=== PATIENT | male | born 1945 | race Caucasian/White ===

== ENCOUNTER 2019-06-18 09:06 | Inpatient (IN) ==
--- NOTE | 2019-06-18 10:02 | Diag Imaging Result Doc PS360 ---
EXAM: KUB ABDOMEN HISTORY: AMS TECHNIQUE: Single view COMPARISON: None. FINDINGS: No bowel obstruction. No organomegaly. Prominent atherosclerosis. Mild degenerative spine changes. IMPRESSION: No acute abnormality Electronically signed by Waylon Vaughan 06/18/2019 10:00 AM
--- NOTE | 2019-06-18 10:02 | Diag Imaging Result Doc PS360 ---
EXAM: CHEST-PORTABLE HISTORY: AMS TECHNIQUE: Single view COMPARISON: 01/08/2017 FINDINGS: The lungs are well expanded. The heart is not enlarged. There are sternal wires. The vessels are not distended. Mild increased interstitial markings in both lungs. No effusion identified. Right-sided granuloma. IMPRESSION: Small infiltrates Electronically signed by Waylon Vaughan 06/18/2019 9:59 AM
--- NOTE | 2019-06-18 10:20 | EKG Report ---
Test Performed on : 06/18/2019 10:19:27 AM Test Reason : AMS Blood Pressure : / mmHG Vent. Rate : 087 BPM Atrial Rate : 087 BPM P-R Int : 148 ms QRS Dur : 088 ms QT Int : 344 ms P-R-T Axes : 069 053 077 degrees QTc Int : 413 ms Sinus rhythm. with frequent premature ventricular complexes. Nonspecific T wave abnormality Abnormal ECG When compared with ECG of 08-JAN-2017 10:08, premature ventricular complexes. are now present Borderline criteria for Inferior infarct are no longer present Unconfirmed Result
[2019-06-18 10:28] LABS: ALLEN TEST YES; BE -6.6 mmoll (-3.0-3.0); BLOOD TYPE ARTERIAL; HCO3-(ACT) 19.7 mmoll (20.0-26.0); METHB 1.3 % (0.0-1.5); O2(CT) 18.6 mL/dL (15.0-23.0); O2HB 95.3 % (95.0-99.0); PCO2(98.6) 29 mmHg (35-45); PO2(98.6) 86 mmHg (60-100); SAMPLE BLOOD; SAO2 98.8 % (95.0-100.0); THB 13.8 g/dL (11.5-17.4); pH(98.6) 7.38 (7.35-7.45)
--- NOTE | 2019-06-18 10:29 | Diag Imaging Result Doc PS360 ---
CT HEAD W/O CONTRAST - 06/18/2019 INDICATION: AMS COMPARISON: 01/08/2017 FINDINGS: There has been some increase in the ventricular sizes diffusely. There is also increase in the periventricular white matter edema or gliosis. There is probably a stable small old stroke in the left cerebellar hemisphere. No intracranial mass or hemorrhage. The skull is intact. The sinuses are grossly clear. IMPRESSION: Worsening ventricular dilation with periventricular white matter edema or gliosis. Highly suggestive of normal pressure hydrocephalus. This exam was performed using automated exposure control, adjustment of mA or kV according to patient size, and/or use of iterative reconstruction technique Electronically signed by Ramo Isaac 06/18/2019 10:27 AM
[2019-06-18 10:30] LABS: MODALITY ROOM AIR
[2019-06-18 11:08] LABS: BASO# 0.01 X1000 (0.0-0.2); BASO% 0.1 % (0.0-0.8); HEMATOCRIT 40.5 % (42.0-52.0); LYMPH# 1.15 X1000 (1.2-3.4); LYMPH% 8.8 % (20.5-51.1); MCH 30.1 PG (27-31); MCHC 34.6 g/dL (33-37); MCV 87.1 FL (81-99); MONO# 0.77 X1000 (0.11-0.59); MONO% 5.9 % (1.7-9.3); MPV 12.7 FL (7.4-10.4); NEUT% 85.2 % (42.2-75.2); PLT 193 X1000 (130-400); RBC 4.65 XMIL (4.7-6.1); RDW 14.8 % (11.5-14.5); WBC 13.13 X1000 (4.8-10.8)
[2019-06-18 11:10] LABS: INR 1.03; PROTIME 13.7 Seconds (11.0-16.0)
[2019-06-18 11:23] LABS: BILIRUBIN URINE NEGATIVE (NEGATIVE); BLOOD URINE SMALL (NEGATIVE); COLOR YELLOW; GLUCOSE URINE >1000 mg/dL (NEGATIVE); KETONE URINE 10 mg/dL (NEGATIVE); LEUKOCYTES URINE LARGE (NEGATIVE); NITRITE URINE NEGATIVE (NEGATIVE); PROTEIN URINE TRACE mg/dL (NEGATIVE); SP GRAVITY URINE 1.021; TURBIDITY URINE HAZY (CLEAR); URINE SOURCE CATH; UROBILINOGEN URINE NORMAL (NORMAL)
[2019-06-18 11:26] LABS: ALB/GLOB RATIO 1.1; ALBUMIN 3.6 g/dL (3.5-5.0); CALCIUM 9.1 mg/dL (8.8-10.2); CREATININE 1.8 mg/dL (0.7-1.2); POTASSIUM 4.6 mmol/L (3.5-5.1); TOTAL BILIRUBIN 0.41 mg/dL (0.20-1.00); TOTAL PROTEIN 6.8 g/dL (6.3-8.3)
[2019-06-18] MEDS ORDERED: HUMULIN R IV ONE (11:31)
[2019-06-18 11:32] LABS: UR EPITHELIAL CELLS <10 /HPF (<10); URINE BACTERIA 1+ /HPF; URINE RBC <10 /HPF (<10); URINE WBC TNTC /HPF (<10)
[2019-06-18 11:43] LABS: URINE CASTS NONE SEEN; URINE CRYSTALS NONE SEEN; URINE SMALL ROUND CELLS NONE SEEN; URINE YEAST NONE SEEN
[2019-06-18 12:03] LABS: UR AMPHETAMINES QUAL NONE DETECTED (NONE DETECT); UR BARBITUATES QUAL NONE DETECTED (NONE DETECT); UR BENZODIAZEPIN QUAL NONE DETECTED (NONE DETECT); UR CANNABINOIDS QUAL NONE DETECTED (NONE DETECT); UR COCAINE QUAL NONE DETECTED (NONE DETECT); UR METHADONE QUAL NONE DETECTED (NONE DETECT); UR OPIATES QUAL NONE DETECTED (NONE DETECT); UR OXYCODONE QUAL NONE DETECTED (NONE DETECT); UR PCP QUAL NONE DETECTED (NONE DETECT)
[2019-06-18] MEDS ORDERED: ZOSYN 3.375 GM in NS 50 ML IV ONE (12:10)
[2019-06-18] MEDS ORDERED: LOVENOX 1 MG/KG SUBQ ONE (12:11)
[2019-06-18] MEDS ORDERED: NS 1,000 ML IV ONE (12:13)
[2019-06-18] MEDS ORDERED: LOVENOX SUBQ ONE (12:15)
--- NOTE | 2019-06-18 12:24 | PROVIDER DOCUMENTATION ---
This chart was entered by Rosalba Cano Scribe, acting as scribe for Dawit Orozco DO. HPI-Fever - General Chief Complaint: Altered Mental Status Stated Complaint: ams Time Seen by Provider: 06/18/19 09:49 Source: family (), other (Hospice nurse) Allergies/Adverse Reactions: Patient Allergies Allergy/AdvReac Type Severity Reaction Status Date / Time No Known Allergies Allergy Verified 01/08/17 10:53 Home Medications: Home Medication List Medication Instructions Recorded Confirmed Last Taken Type Aspirin/Dipyridamole [Aggrenox 25 1 each PO DAILY 10/26/13 01/08/17 10/25/13 History mg-200 mg Capsule] Fenofibrate 160 mg PO DAILY 10/26/13 01/08/17 10/25/13 History Insulin Detemir [Levemir] 70 unit SUBQ QPM 10/26/13 01/08/17 01/07/17 History LISINOpril [Prinivil] 20 mg PO DAILY 10/26/13 01/08/17 10/25/13 History Levothyroxine [Synthroid] 0.05 mg PO DAILY 10/26/13 01/08/17 10/25/13 History Metformin E.r. [Glucophage Xr] 1,000 mg PO BID CC 10/26/13 01/08/17 01/07/17 History Oxybutynin E.r. [Ditropan Xl] 10 mg PO DAILY 10/26/13 01/08/17 10/25/13 History PRAVAstatin [Pravachol] 40 mg PO DAILY 10/26/13 01/08/17 10/25/13 History Pioglitazone [Actos] 30 mg PO DAILY 10/26/13 01/08/17 10/25/13 History Aspirin [Aspir-Low] 81 mg PO DAILY 01/08/17 01/08/17 Unknown History Mirabegron [Myrbetriq] 50 mg PO DAILY 01/08/17 01/08/17 Unknown History Nitrofurantoin Monohyd/M-Cryst 100 mg PO BID #20 capsule 01/08/17 Unknown Rx [Macrobid 100 mg Capsule] Polyethylene Glycol 3350 [Miralax] 17 gm PO DAILY 01/08/17 01/08/17 Unknown History - History of Present Illness-Fever Nature of Presenting Problem: 73yom presents to ED by EMS cc fever of 101.4, weakness, vomiting and diarrhea with blood. 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 also reports pt was around great grandson on Saturday and child was diagnosed with flu on Saturday. also reports has had a fall in last week but denies pt hitting head or LOC. Hospice nurse is at bedside and reports pt was prescribed Seroquel 25mg qhs, 2 night ago, but pharmacist filled Zoloft instead and pt had 2 doses before it was realized to be wrong medicine. Pt has moderate dementia. Fever Severity/Quality: reports: greater than 100.5 F Onset/Duration: reports: this morning Timing: reports: still present Severity: reports: moderate, severe Context: reports: decreased mental status Recent Illness?: reports: none Cognitive Baseline: other (moderate dementia) Modifying Factors: improves with: nothing Associated Symptoms: reports: diarrhea, fever/chills, vomiting, weakness Similar Symptoms Previously?: No Recently seen or treated by another doctor?: No - Glascow Coma Score Best Eye Response ([place]acie): (4) open spontaneously Best Verbal Response ([place]acie): (1) no verbal response Best Motor Response ([place]): (4) withdraws to pain [place] Total: 9 Review of Systems - Adult - REVIEW OF SYSTEMS - ADULT Constitutional: reports: see HPI, chills, fever, fatique. denies: weight gain Eyes: reports: no symptoms reported Ears, Nose, Mouth & Throat: reports: no symptoms reported Cardiovascular: reports: no symptoms reported Respiratory: reports: see HPI. denies: cough, shortness of breath, wheezing Gastrointestinal: reports: see HPI, diarrhea, rectal bleeding, vomiting Genitourinary: reports: no symptoms reported Musculoskeletal: reports: no symptoms reported Integumentary: reports: no symptoms reported Neurological: reports: no symptoms reported Psychiatric: reports: no symptoms reported Endocrine: reports: no symptoms reported Hematologic/Lymphatic: reports: no symptoms reported Allergic/Immunologic: reports: no symptoms reported All Other Systems: Reviewed and Negative Past History - Adult - PAST MEDICAL HISTORY-ADULT Review of Records: reports: Nursing Assessment Review, Medications Reviewed, Social history reviewed & non-contributory. Major Childhood Illnesses: reports: denies history Cardiovascular: reports: HTN, OR Respiratory: reports: denies history Gastrointestinal: reports: denies history Obstetrical/Gynecological: reports: denies history Genitourinary: reports: denies history Musculoskeletal: reports: denies history Neurological: reports: CVA Endocrine/Immune: reports: Diabetes Other Conditions: reports: denies history - IMMUNIZATION STATUS Childhood Immunizations: See Nurse Assessment Flu Vaccine: See Nurse Assessment - FAMILY HISTORY Family History: reviewed, not pertinent - SOCIAL HISTORY Smoking: denies Physical Exam-General - PHYSICAL EXAM-ADULT Initial Vital Signs Reviewed: Yes - CONSTITUTIONAL General Appearance: no apparent distress, lethargic, slow to respond. negative: anxious, combative - EYES Eyes: PERRL/EOMI, pink conjunctivae. negative: photophobia - HEAD, EARS, NOSE, MOUTH & THROAT HENMT: normocephalic/atraumatic, moist mucous membranes, normal ENT inspection. negative: angioedema - RESPIRATORY Respiratory: chest non-tender, normal breath sounds, no pleuratic chest pain, no respiratory distress, no accessory muscle use, crackles (at bases bilateral). negative: lungs clear, rales, rhonchi, stridor, wheezing - CARDIOVASCULAR Cardiovascular: normal peripheral pulses, regular rate, rhythm, no edema, no gallop, no JVD, no murmur. negative: bradycardia, tachycardia - GASTROINTESTINAL (ABDOMEN) Abdominal Exam: normal bowel sounds, non tender, soft, no organomegaly, no pulsatile mass. negative: distended, guarding, rigid, rebound - LYMPHATIC Lymphatic: no adenopathy. negative: enlargement, striations - MUSCULOSKELETAL Extremity: non-tender, no pedal edema, no calf tenderness, normal capillary refill, other (moves extremities slowly). negative: deformity, swelling, tenderness - SKIN Integumentary: normal color, normal turgor, warm/dry. negative: diaphoresis, erythema, jaundice, rash, swelling, tenderness - NEUROLOGIC Neurologic: motor weakness (left arm, doesn't actively move it), sensory deficit (left arm), other (pt has strong right e m assembler but loose left). negative: facial droop - PSYCHIATRIC Psych/Mental Status: negative: anxious, disheveled Progress - PLAN OF CARE/RESULTS Progress/Plan/Lab Results: Vital Signs - 8 hr 06/18/19 09:13 06/18/19 09:17 06/18/19 09:18 Temperature 100.9 F H Pulse Rate 90 90 91 H Respiratory Rate 19 21 22 Blood Pressure 118/65 118/65 O2 Sat by Pulse Oximetry 97 97 97 06/18/19 09:30 06/18/19 09:33 06/18/19 09:45 Temperature Pulse Rate 89 91 H 89 Respiratory Rate 22 19 19 Blood Pressure 113/66 O2 Sat by Pulse Oximetry 95 98 95 06/18/19 10:09 06/18/19 10:15 06/18/19 10:45 Temperature Pulse Rate 88 89 85 Respiratory Rate 19 19 21 Blood Pressure 138/55 O2 Sat by Pulse Oximetry 96 96 96 06/18/19 10:48 06/18/19 11:00 06/18/19 11:03 Temperature Pulse Rate 85 94 H 85 Respiratory Rate 18 20 15 Blood Pressure 133/62 137/84 O2 Sat by Pulse Oximetry 99 98 97 06/18/19 10:35 Influenza Screen - Final Nasopharyngeal Laboratory Results - last 24 hr 06/18/19 06/18/19 06/18/19 10:11 10:20 10:30 WBC RBC Hgb Hct MCV MCH MCHC RDW Std Deviation Plt Count MPV Neut % (Auto) Lymph % (Auto) [place] % (Auto) Eos % (Auto) Baso % (Auto) Neut # (Auto) Lymph # (Auto) [place] # (Auto) Eos # (Auto) Baso # (Auto) PT INR PTT (Actin FS) Specimen Type ARTERIAL Sample Site R RADIAL pH 7.38 pCO2 29 L pO2 86 HCO3 19.7 L Base Excess -6.6 L Oxyhemoglobin 95.3 ABG O2 Sat (Calculated) 18.6 ABG O2 Saturation 98.8 ABG Carboxyhemoglobin 2.20 ABG Methemoglobin 1.3 Perry Test YES A-a O2 Difference 27.0 Total Hemoglobin 13.8 Lactate 1.20 Blood Gas Modality ROOM AIR FiO2 % 21.0 Sodium Potassium Chloride Carbon Dioxide Anion Gap BUN Creatinine Estimated GFR/1.73 m2 BUN/Creatinine Ratio Glucose POC Glucose 341 H Calculated Osmolality Calcium Total Bilirubin AST ALT Alkaline Phosphatase Creatine Kinase Troponin T High Sens Total Protein Albumin Globulin Albumin/Globulin Ratio Plasma Lactate 1.7 Urine Source Urine Color Urine Turbidity Urine pH Ur Specific [place] Urine Protein Ur Glucose (Stick) Ur Ketones (Stick) Urine Blood Urine Nitrite Urine Bilirubin Urobilinogen Dipstick Urine Leukocytes Urine WBC (Auto) Urine RBC (Auto) U Epithel Cells (Auto) Urine Bacteria (Auto) Urine Crystals Small Round Cells Urine Casts Urine Yeast-like Cells Urine Opiates Screen Ur Oxycodone Screen Ur Methadone, Qual Ur Barbiturates Screen Ur Phencyclidine Scrn Ur Amphetamines Screen U Benzodiazepines Scrn Urine Cocaine Screen U Cannabinoids Screen Plasma/Serum Ethyl Alc 06/18/19 06/18/19 06/18/19 10:30 10:30 10:30 WBC RBC Hgb Hct MCV MCH MCHC RDW Std Deviation Plt Count MPV Neut % (Auto) Lymph % (Auto) [place] % (Auto) Eos % (Auto) Baso % (Auto) Neut # (Auto) Lymph # (Auto) [place] # (Auto) Eos # (Auto) Baso # (Auto) PT 13.7 INR 1.03 PTT (Actin FS) 34.0 Specimen Type Sample Site pH pCO2 pO2 HCO3 Base Excess Oxyhemoglobin ABG O2 Sat (Calculated) ABG O2 Saturation ABG Carboxyhemoglobin ABG Methemoglobin Perry Test A-a O2 Difference Total Hemoglobin Lactate Blood Gas Modality FiO2 % Sodium Potassium Chloride Carbon Dioxide Anion Gap BUN Creatinine Estimated GFR/1.73 m2 BUN/Creatinine Ratio Glucose POC Glucose Calculated Osmolality Calcium Total Bilirubin AST ALT Alkaline Phosphatase Creatine Kinase Troponin T High Sens 174 H* Total Protein Albumin Globulin Albumin/Globulin Ratio Plasma Lactate Urine Source Urine Color Urine Turbidity Urine pH Ur Specific [place] Urine Protein Ur Glucose (Stick) Ur Ketones (Stick) Urine Blood Urine Nitrite Urine Bilirubin Urobilinogen Dipstick Urine Leukocytes Urine WBC (Auto) Urine RBC (Auto) U Epithel Cells (Auto) Urine Bacteria (Auto) Urine Crystals Small Round Cells Urine Casts Urine Yeast-like Cells Urine Opiates Screen Ur Oxycodone Screen Ur Methadone, Qual Ur Barbiturates Screen Ur Phencyclidine Scrn Ur Amphetamines Screen U Benzodiazepines Scrn Urine Cocaine Screen U Cannabinoids Screen Plasma/Serum Ethyl Alc 06/18/19 06/18/19 06/18/19 10:30 10:30 11:00 WBC 13.13 H RBC 4.65 L Hgb 14.0 Hct 40.5 L MCV 87.1 MCH 30.1 MCHC 34.6 RDW Std Deviation 14.8 H Plt Count 193 MPV 12.7 H Neut % (Auto) 85.2 H Lymph % (Auto) 8.8 L [place] % (Auto) 5.9 Eos % (Auto) 0.0 Baso % (Auto) 0.1 Neut # (Auto) 11.20 H Lymph # (Auto) 1.15 L [place] # (Auto) 0.77 H Eos # (Auto) 0.00 Baso # (Auto) 0.01 PT INR PTT (Actin FS) Specimen Type Sample Site pH pCO2 pO2 HCO3 Base Excess Oxyhemoglobin ABG O2 Sat (Calculated) ABG O2 Saturation ABG Carboxyhemoglobin ABG Methemoglobin [place] Test A-a O2 Difference Total Hemoglobin Lactate Blood Gas Modality FiO2 % Sodium 137 Potassium 4.6 Chloride 100 Carbon Dioxide 18 L Anion Gap 19 BUN 29 H Creatinine 1.8 H Estimated GFR/1.73 m2 37 BUN/Creatinine Ratio 16 Glucose 329 H POC Glucose Calculated Osmolality 292 Calcium 9.1 Total Bilirubin 0.41 AST 18 ALT 9 L Alkaline Phosphatase 50 Creatine Kinase 81 Troponin T High Sens Total Protein 6.8 Albumin 3.6 Globulin 3.2 Albumin/Globulin Ratio 1.1 Plasma Lactate Urine Source CATH Urine Color YELLOW Urine Turbidity HAZY Urine pH 5.0 Ur Specific [place] 1.021 Urine Protein TRACE A Ur Glucose (Stick) >1000 A Ur Ketones (Stick) 10 A Urine Blood SMALL A Urine Nitrite NEGATIVE Urine Bilirubin NEGATIVE Urobilinogen Dipstick NORMAL Urine Leukocytes LARGE A Urine WBC (Auto) TNTC A Urine RBC (Auto) <10 U Epithel Cells (Auto) <10 Urine Bacteria (Auto) 1+ Urine Crystals NONE SEEN Small Round Cells NONE SEEN Urine Casts NONE SEEN Urine Yeast-like Cells NONE SEEN Urine Opiates Screen Ur Oxycodone Screen Ur Methadone, Qual Ur Barbiturates Screen Ur Phencyclidine Scrn Ur Amphetamines Screen U Benzodiazepines Scrn Urine Cocaine Screen U Cannabinoids Screen Plasma/Serum Ethyl Alc 06/18/19 06/18/19 11:07 12:11 WBC RBC Hgb Hct MCV MCH MCHC RDW Std Deviation Plt Count MPV Neut % (Auto) Lymph % (Auto) [place] % (Auto) Eos % (Auto) Baso % (Auto) Neut # (Auto) Lymph # (Auto) [place] # (Auto) Eos # (Auto) Baso # (Auto) PT INR PTT (Actin FS) Specimen Type Sample Site pH pCO2 pO2 HCO3 Base Excess Oxyhemoglobin ABG O2 Sat (Calculated) ABG O2 Saturation ABG Carboxyhemoglobin ABG Methemoglobin [place] Test A-a O2 Difference Total Hemoglobin Lactate Blood Gas Modality FiO2 % Sodium Potassium Chloride Carbon Dioxide Anion Gap BUN Creatinine Estimated GFR/1.73 m2 BUN/Creatinine Ratio Glucose POC Glucose 322 H Calculated Osmolality Calcium Total Bilirubin AST ALT Alkaline Phosphatase Creatine Kinase Troponin T High Sens Total Protein Albumin Globulin Albumin/Globulin Ratio Plasma Lactate Urine Source Urine Color Urine Turbidity Urine pH Ur Specific [place] Urine Protein Ur Glucose (Stick) Ur Ketones (Stick) Urine Blood Urine Nitrite Urine Bilirubin Urobilinogen Dipstick Urine Leukocytes Urine WBC (Auto) Urine RBC (Auto) U Epithel Cells (Auto) Urine Bacteria (Auto) Urine Crystals Small Round Cells Urine Casts Urine Yeast-like Cells Urine Opiates Screen NONE DETECTED Ur Oxycodone Screen NONE DETECTED Ur Methadone, Qual NONE DETECTED Ur Barbiturates Screen NONE DETECTED Ur Phencyclidine Scrn NONE DETECTED Ur Amphetamines Screen NONE DETECTED U Benzodiazepines Scrn NONE DETECTED Urine Cocaine Screen NONE DETECTED U Cannabinoids Screen NONE DETECTED Plasma/Serum Ethyl Alc Orders Category Date Time Status Cardiac Monitoring DIRECTED Care 06/18/19 09:35 Active Finger Stick Blood Sugar (ED) DIRECTED Care 06/18/19 09:35 Active Oxygen Therapy- ED Nursing DIRECTED Care 06/18/19 09:35 Active Saline Loc NOW Care 06/18/19 09:35 Active CHEST-PORTABLE [RAD] Stat Exams 06/18/19 09:[address] ABD/PELVIS W/PO AND IV CON [CT] Stat Exams 06/18/19 12:[address] HEAD W/O CONTRAST [CT] Stat Exams 06/18/19 09:38 Completed KUB ABDOMEN [RAD] Stat Exams 06/18/19 09:44 Completed ABG [RESP] Routine Lab 06/18/19 10:20 Completed ALCOHOL BLOOD Stat Lab 06/18/19 10:30 Completed BLOOD CULTURE [BLDCUL] Stat Lab 06/18/19 09:51 Uncollected CBC WITH ELECTRONIC DIFF [HEME] Stat Lab 06/18/19 10:30 Completed CK PROFILE [SP CHEM] Stat Lab 06/18/19 10:30 Completed COMPREHENSIVE METABOLIC PANEL [CHEM] Stat Lab 06/18/19 10:30 Completed INFLUENZA SCREEN A/B Stat Lab 06/18/19 10:35 Completed LACTATE, PLASMA [CHEM] Stat Lab 06/18/19 10:30 Completed PROTIME WITH INR [COAG] Stat Lab 06/18/19 10:30 Completed PTT [COAG] Stat Lab 06/18/19 10:30 Completed TROPONIN T HIGH SENSITIVITY Stat Lab 06/18/19 10:30 Completed URINALYSIS [URINALYSIS] Stat Lab 06/18/19 11:00 Completed URINE DRUG SCREEN Stat Lab 06/18/19 11:07 Completed URINE MANUAL MICROSCOPIC [URINALYSIS] Stat Lab 06/18/19 11:00 Completed 0.9% Sodium Chloride Inj [Ns] 1,000 ml Med 06/18/19 12:13 Active IV 999 mls/hr Enoxaparin 1 mg/kg [Lovenox 1 mg/kg] Med 06/18/19 12:11 Discontinued 1 each SUBQ NOW ONE Enoxaparin [Lovenox] Med 06/18/19 12:15 Discontinued 60 mg SUBQ NOW ONE Insulin Human Regular [Humulin R] Med 06/18/19 11:31 Discontinued 5 unit IV NOW ONE Piperacillin/Tazobactam [Zosyn] 3.375 gm Med 06/18/19 12:10 Active 0.9% Sodium Chloride Inj [Ns] 50 ml IV NOW Altered Mental Status Stat Oth 06/18/19 09:34 Ordered EKG [EKG] Stat Ther 06/18/19 09:35 Draft Result Diagrams: 06/18/19 10:30 06/18/19 10:30 - EKG 1 Time of EKG reading by physician:: 10:20 EKG Read and Signed by:: Dawit Orozco EKG Interpretation (*Must complete 3 of following elements*): Abnormal (nonspecific T wave abnormality) Rate: 87 Rhythm: Sinus w/frequent PVC's QRS: PVC's (frequent) - XRAY 1 XRAY Study: Abdomen Impression: See EMR Report (IMPRESSION: No acute abnormality Electronically signed by Waylon Vaughan 06/18/2019 10:00 AM) 2 XRAY: Bilateral XRAY Study: Chest Impression: See EMR Report (IMPRESSION: Small infiltrates Electronically signed by Waylon Vaughan 06/18/2019 9:59 AM) - CT/MRI 1 CT Study: Head Impression: See EMR Report (IMPRESSION: Worsening ventricular dilation with periventricular white matter edema or gliosis. Highly suggestive of normal pressure hydrocephalus. This exam was performed using automated exposure control, adjustment of mA or kV according to patient size, and/or use of iterative reconstruction technique Electronically signed by Ramo Isaac 06/18/2019 10:27 AM) - CONSULTS/PCP/HOSPITALIST Notification #1 *Consult/PCP/Hospitalist*: Clary/VESSEL MANAGER paged @[phone]@[phone] Time Discussed: 12:21 Consult Disposition: Admit (accepted pt to Dr. Garrison) Departure - Departure Date of Disposition Decision: 06/18/19 Time of Disposition Decision: 12:12 DIAGNOSIS: Sepsis, Non-STEMI (non-ST elevated myocardial infarction), Altered mental status, Dehydration Disposition: ADMITTED INPATIENT 09 Certified Medical Emergency: Emergent Condition: Stable Referrals and Follow-Ups: Ignacio Garcia DO [Primary Care Provider] - - Critical Care Note This patient required my direct & personal management of CC.: Yes Total Time (mins): 60 Critical Care Statement: This patient required my direct personal management to treat or rule out processes, the absence of which, could potentiallly result in sudden, clinically significant life or limb threatening deterioration. Attestation - Physician/ FLAKO Attestation Patient care was provided by Advanced Practice Provider:: No The physician spent face to face time with patient:: Yes Advanced Practice Provider documentation review:: Supervising physician onsite and consulted in the evaluation and care of this patient. The physician did have a face to face encounter with the patient. This chart was documented by the indicated scribe, (Rosalba Cano Scribe) and accurately reflects the services I performed and decisions made by me, Dawit Orozco DO, as attested by the provider's signature.
[2019-06-18] MEDS ORDERED: TYLENOL PO PRN (14:12)
[2019-06-18] MEDS ORDERED: ZOFRAN IV PRN (14:12)
[2019-06-18] MEDS: DUONEB (A & A) INH SCH ×3 (16:02→23:26)
--- NOTE | 2019-06-18 17:30 | HISTORY AND PHYSICAL ---
CHIEF COMPLAINT: Fever of 101.4, weakness, nausea, vomiting, and diarrhea. HISTORY OF PRESENTING ILLNESS: This is a 73-year-old male who presents to [facility] with complaints of a fever, subjective 101.4, weakness, nausea, vomiting and diarrhea that has worsened over the past several days. He states that he has been on hospice care with comfort care. He was around a great grandson on Saturday, and the child was diagnosed with the flu on Saturday. also reports that the patient had a fall last week, but denied hitting head or any loss of consciousness. It was also noted that he was prescribed Seroquel 25 mg at bedtime 2 nights ago, but the pharmacy had filled Zoloft instead of Seroquel, and he had 2 doses before it was realized that it was the wrong medicine. He is noted to have moderate dementia. When he arrived, he had a temperature of 100.9 degrees, saturating 97% on room air. His white blood cell count was 13.13. His BUN was 29 with a creatinine of 1.8 and glucose of 329. Troponin T high sensitivity was 174. His chest x-ray showed small infiltrates. CT of the head showed worsening ventricular dilation with periventricular white matter edema or gliosis highly suggestive of normal-pressure hydrocephalus. Abdominal x-ray showed no acute abnormality. Unable to do CT of the abdomen and pelvis with IV contrast due to elevated creatinine, and patient unable to drink any fluids due to his nausea and vomiting at this time of oral contrast so we will hold off on that until he is feeling a little better. His urinalysis showed negative nitrites, large leukocytes, and 1+ bacteria. His influenza A and B were both negative, and his urine drug screen was negative so he will be admitted for further evaluation and treatment. PAST MEDICAL HISTORY: Dementia, CVA x2 with right-sided weakness, COPD, diabetes type 2, GERD, hyperlipidemia and hypothyroidism. PAST SURGICAL HISTORY: CABG. FAMILY HISTORY: Reviewed and noncontributory. SOCIAL HISTORY: Currently lives with his . He is on hospice care at home. He is a former smoker and denies any alcohol or illicit drug use. ALLERGIES: He has no known drug allergies. HOME MEDICATIONS: A current list will need to be obtained, reconciled, reviewed and restarted as appropriate. We will place an order for nursing to update and confirm home medications. LABORATORY DATA: White blood cell count of 13.13, hemoglobin 14, hematocrit 40.5, and platelets 193,000. The PT and INR of 13.7 and 1.03. ABG with a pH of 7.38, pCO2 of 29, PO2 86, bicarb 19.7. This was on room air. Sodium 137, potassium 4.6, chloride 100, CO2 18, BUN of 29, creatinine 1.8, and glucose 329. Creatine kinase of 81. Troponin T has a sensitivity of 174. Plasma lactate of 1.7. Urinalysis with negative nitrites, large leukocytes, and 1+ bacteria. Urine drug screen was negative. Serum alcohol level showed none detected. Chest x-ray showed small infiltrate. EKG showed sinus rhythm with frequent PVC at 87. Head CT showed a worsening ventricular dilation with periventricular white matter edema or gliosis highly suggestive of normal-pressure hydrocephalus. Abdominal x-ray showed no acute abnormality. REVIEW OF SYSTEMS: He has had a subjective fever, nausea, vomiting, diarrhea and weakness. Denied any cough, shortness of breath, abdominal pain, burning or hurting with urination. PHYSICAL EXAMINATION: VITAL SIGNS: On arrival, he had a temperature of 100.9 degrees, pulse 90, respirations 19, blood pressure 118/65 and saturating 97% on room air. GENERAL: This is a 73-year-old male lying in the bed. HEENT: Normocephalic, atraumatic. Normal ENT inspection. Oropharynx and nares are clear. EYES: Pupils are equal, round, and reactive to light and accommodation. Extraocular movements are intact. NECK: Normal inspection. Normal range of motion. LUNGS: Clear to auscultation bilaterally with equal lung expansion and chest wall movement. HEART: Regular rate and rhythm. No murmurs, rubs, or gallops. ABDOMEN: Soft, nontender, and nondistended. Bowel sounds are present x4 quadrants. MUSCULOSKELETAL: He has 4/5 strength x4 extremities. NEUROLOGICAL: The cranial nerves 2-12 appear grossly intact. ASSESSMENT: 1. Bilateral pneumonia. 2. Acute kidney injury. 3. UTI. 4. Elevated troponin. 5. Diabetes type 2, uncontrolled with hyperglycemia. 6. Dementia. PLAN: He will be admitted to the medical unit and placed on telemetry. O2 per protocol. Pattern blood sugars with sliding scale insulin. Place on Zosyn 3.375 g IV q.6 1st dose in the emergency room. Normal saline at 75 mL an hour, DuoNeb q.4 hours. Incentive spirometry. Turn, cough and deep breathe. Recheck cardiac profile and troponin T has sensitivity now. Further orders after seen by attending and by consultants. Dictated by CHERELLE Barroso for Sridhar Garrison MD cc: CHERELLE Barroso MD
[2019-06-18] MEDS: HUMALOG SUBQ SCH (17:32)
[2019-06-18] MEDS: NS 1,000 ML IV SCH (17:38)
[2019-06-18] MEDS: ZOSYN 3.375 GM in NS 50 ML IV SCH ×2 (17:41→23:59)
--- NOTE | 2019-06-18 21:32 | HISTORY AND PHYSICAL ---
ADDENDUM: I have seen and examined Mr. Lopez today in the emergency room. The and children were at the bedside. There were also 2 other family members as well. Mr. Lopez was brought in because of generalized weakness, nausea, vomiting, and diarrhea which eventually became bloody with mucus yesterday. The last episode was this morning. The patient was brought in this morning. PHYSICAL EXAMINATION: VITAL SIGNS: Blood pressure is 105/58, pulse of 72, respirations 16, temperature 98.2 degrees. GENERAL: Mr. Lopez is 73-year-old male. He is in bed. He looks remarkably dry. He is nonverbal. CHEST: Air entry was bilateral with a few crackles posteriorly. CARDIOVASCULAR: Regular rate and rhythm. ABDOMEN: Soft. Bowel sounds present. There is no hepatosplenomegaly. EXTREMITIES: No pedal edema. CENTRAL NERVOUS SYSTEM: The patient is sleepy but easily arousable, and follows basic commands. He does not seem to have any remarkable neurologic deficit, except for significant cognitive decline. The patient was for the most part nonverbal. I have been told by the that Mr. Lopez is total care, for the most part in bed. He needs assistance to dress himself and to even feed himself lately. LABORATORY DATA: Reviewed. There is elevated white cell count, hemoglobin is 14.00. I think there is hemoconcentration aspect of this. Creatinine is 1.8. Anion gap is 19 with a bicarbonate of 18. Glucose is 329. Troponin was 131. Urine seems to be pathological as well. ASSESSMENT AND PLAN: 1. Nausea and vomiting associated with diarrhea which is bloody, suggestive of dysenteric diarrhea. The patient has been started on intravenous fluids. We will order for stool cultures, WBC as well as Clostridium difficile. The patient will empirically be covered with intravenous antibiotics. 2. Bilateral lower lobe infiltrates on x-ray concerning for pneumonia. The patient has been covered with antibiotics. 3. Acute kidney injury secondary to volume depletion. We will continue with fluid resuscitation. 4. Uncontrolled diabetes mellitus. Glucose is 329. We will check the acetone levels to rule out any possible diabetic ketoacidosis. The patient will also be continued with insulin regimen and we will check on his A1c. 5. Severe dementia. The patient is total care. I understand he living at home with hospice comfort care. 6. Elevated troponin. We will continue to trend this. It seems to be coming down already. The patient's electrocardiogram does not show any T waves or ST-segment abnormality, and he denies any chest pain. He does have significant history of coronary artery disease, status post coronary artery bypass graft in the past, so we will continue to trend this and then re- evaluate him in the morning. 7. Sepsis secondary to gastroenteritis and/or pneumonia. 8. Suspected urinary tract infection. Urine culture has been ordered. Antimicrobials have been started until we have the culture report. Please refer to the details of the history and physical that has been dictated in the chart by the nurse practitioner. I have discussed the plan with her. I have also discussed my findings and the plan with the family, who were at the bedside at the time. cc: Sridhar Garrison MD
[2019-06-18] MEDS ORDERED: INSULIN PEN NEEDLES ONE (23:41)
[2019-06-19] MEDS: LEVEMIR SUBQ SCH ×2 (00:01→21:36)
[2019-06-19] MEDS: HUMALOG SUBQ SCH ×5 (00:02→21:35)
[2019-06-19] MEDS: DUONEB (A & A) INH SCH ×6 (03:33→23:08)
[2019-06-19] MEDS: NS 1,000 ML IV SCH ×2 (06:19→21:34)
[2019-06-19] MEDS: ZOSYN 3.375 GM in NS 50 ML IV SCH ×3 (06:19→17:48)
--- NOTE | 2019-06-19 06:52 | EKG Report ---
Test Performed on : 06/19/2019 06:40:54 AM Test Reason : chest pain Blood Pressure : / mmHG Vent. Rate : 070 BPM Atrial Rate : 070 BPM P-R Int : 132 ms QRS Dur : 098 ms QT Int : 400 ms P-R-T Axes : 037 042 070 degrees QTc Int : 432 ms Normal sinus rhythm. Normal ECG When compared with ECG of 18-JUN-2019 10:19, (Unconfirmed) premature ventricular complexes. are no longer present Confirmed by Andrzej MOTLEY, Edmond Schneider ([id number]) on 06/21/2019 10:25:28 PM
[2019-06-19 07:50] LABS: BASO# 0.06 X1000 (0.0-0.2); BASO% 0.7 % (0.0-0.8); EOS# 0.17 X1000 (0.0-0.7); HEMATOCRIT 34.8 % (42.0-52.0); HEMOGLOBIN 11.7 g/dL (14.0-18.0); LYMPH# 1.11 X1000 (1.2-3.4); LYMPH% 13.3 % (20.5-51.1); MCH 30.4 PG (27-31); MCHC 33.6 g/dL (33-37); MCV 90.4 FL (81-99); MPV 12.3 FL (7.4-10.4); PLT 151 X1000 (130-400); RBC 3.85 XMIL (4.7-6.1); RDW 14.6 % (11.5-14.5); WBC 8.34 X1000 (4.8-10.8)
[2019-06-19 08:15] LABS: AGAP 14; BUN 17 mg/dL (8-22); CHLORIDE 105 mmol/L (98-107); COSMO 283; ESTIMATED GFR > 60; GLUCOSE 97 mg/dL (70-104); POTASSIUM 3.6 mmol/L (3.5-5.1); SODIUM 141 mmol/L (136-145); TCO2 22 mmol/L (25-35)
[2019-06-19 08:16] LABS: HEMOGLOBIN A1C 8.3 % (4.8-6.0)
[2019-06-19] MEDS: PRAVACHOL PO SCH (09:41)
[2019-06-19] MEDS: ASPIRIN EC PO SCH (09:41)
--- NOTE | 2019-06-19 13:52 | CARDIOLOGY CONSULTATION ---
DATE: 06/19/2019 A 73-year-old gentleman was admitted with nausea, vomiting and diarrhea. Has been having fevers going up to 101.4. He was admitted. Chest x-ray suggestive of pneumonia with bilateral infiltrates. His troponin T high sensitivity was abnormal at 174 subsequently trending down. He denies any chest pains. He has dementia. Has had CVA in the past. He does not complain of any chest pain at the time of my examination. His influenza A and B were both negative. His drug screen was negative as well. REVIEW OF SYSTEM: A 14-point review of systems was done. GI: As above. Central nervous system: No focal weakness to suggest a CVA or TIA. Genitourinary: There is no dysuria or hematuria. PAST MEDICAL HISTORY: 1. Dementia. 2. Coronary artery disease status post coronary artery bypass grafting. 3. CVA x2 with right-sided weakness. 4. COPD. 5. Diabetes. 6. Gastroesophageal reflux disease. 7. Hyperlipidemia. 8. Hypothyroidism. He lives at home. CURRENT MEDICATIONS: Include aspirin 81 mg a day, insulin as directed, Zosyn, pravastatin 40. Does not smoke. Does not drink. He is a former smoker. PHYSICAL EXAMINATION: Blood pressure was 117/49. Cardiovascular: Normal jugular venous pressure. There no thyromegaly. No carotid bruit. First and second heart sounds were heard. There was scattered wheeze. Abdomen: Soft, nontender. There was no guarding or rigidity. Bowel sounds were heard. Central nervous system: Alert, was moving extremities. There was no pedal edema. LABORATORY EXAMINATION: Revealed sodium 141, potassium 3.6, BUN 17, creatinine 1, troponin high T was 102 degrees decreased from 93. CBC. WBC 13.3, hemoglobin 14, hematocrit 40, platelet count of 193. Chest x-ray suggestive of bilateral infiltrate pneumonia. ASSESSMENT AND PLAN: Mr. Addison Lopez is a 73-year-old gentleman with history of coronary artery disease, coronary artery bypass grafting, dementia, cerebrovascular accident in the past, chronic obstructive pulmonary disease, diabetes, gastroesophageal reflux disease, hyperlipidemia, is admitted with fevers, nausea, vomiting and diarrhea. Was noted to have bilateral infiltrates suggestive of pneumonia. From a cardiac standpoint, his troponin T was elevated probably secondary to his pneumonia. He has a known cardiac history. Does not complain of any chest pain. Electrocardiogram revealed premature ventricular contractions and nonspecific ST-T changes. RECOMMENDATIONS: Not made any changes to his medications at the present time. We will get an echocardiogram to assess cardiac and valvular function. If he has LV dysfunction will add KRYSTAL inhibitors otherwise continue with his current medications. Thank you for the consult. We will follow hospital course. cc: Last Ruiz MD
--- NOTE | 2019-06-19 18:13 | ECHO REPORT ---
ORDER DATE: 06/19/2019 INTERPRETING PHYSICIAN: Lemuel Pritchard MD INDICATION: Patient with stroke, hypertension, and myocardial infarction. M-MODE MEASUREMENTS: Left ventricle end diastole: 4.4 cm. Left ventricle end systole: 3.2 cm. Posterior wall: 0.8 cm. Interventricular septum: 0.9 cm. Left atrium: 4.0 cm. Aortic diameter: 3.5 cm. SUMMARY OF 2-DIMENSIONAL IMAGIN. Left ventricular function is normal. Ejection fraction visually appears to be in the order of 55% to 60%. There is no wall motion abnormality noted. 2. The aortic valve looks grossly normal with mild degree of sclerosis. 3. The mitral annulus shows moderate calcification. Color flow mapping indicates a mild degree of regurgitation. 4. Pulse wave Doppler of mitral inflow shows reversal of the E and the A ratio. Ratio is 0.7. 5. Tissue Doppler of septal and lateral mitral annulus averages 8 cm. 6. There is no diastolic dysfunction. 7. The tricuspid valve shows no significant regurgitation. 8. Pulmonary pressure cannot be properly calculated. 9. The pulmonic valve is unremarkable. 10.There is no pericardial effusion, mass, and no thrombus. 11.The right-sided chambers are not enlarged. Clinical correlation is recommended. cc: MD Sridhar Hamilton MD
--- NOTE | 2019-06-19 18:14 | PROGRESS NOTE ---
DATE: 06/19/2019 SUBJECTIVE: This morning Mr. Lopez referred to be doing slightly better. The was at the bedside. At the time of the encounter, Ms. Lopez himself remains very minimally verbally responsive. OBJECTIVE: Vital signs: Blood pressure 117/49, pulse of 67, respirations 17, and temperature 97.7 degrees. The patient was saturating 96% on room air. General: Mr. Lopez is a 73-year-old elderly gentleman. He was in bed. His mucous still looks slightly dry but pink. Neck: Supple. There is no JVD. Respiratory: There is good air entry bilaterally just some distant end inspiratory crackles posteriorly. Cardiovascular: Regular rate and rhythm. I did not hear any murmurs. There is an old sternotomy scar on the anterior chest wall. GI: Abdomen was soft. Bowel sounds were present and slightly hyperactive. No hepatosplenomegaly. Extremities: No pedal edema. CARDIOVASCULAR DISEASE SPECIALIST: Patient had his eyes closed, but he would open them upon command. He will also open his mouth upon command. He withdraws very actively both lower extremities. LABORATORY DATA: WBC is down to 8.34, hemoglobin is 11.7, and platelet count of 151,000. Chemistry is also reviewed. Creatinine is down to 1.0. Glucose is 195 this morning. Patient's A1c is 8.3. So far, blood cultures are still pending. MEDICATIONS: The medications have all been reviewed and no changes. ASSESSMENT: Nausea, vomiting and bloody diarrhea on presentation concerning for gastroenterocolitis. The patient at this point has not had any more bowel movement. Cultures from even the stool are still pending, and have not been able to be collected. Patient has been empirically covered with antimicrobial coverage. 1. Bilateral lower lobe infiltrates on imaging studies concerning for pneumonia. Patient is on antimicrobial coverage. We are pending the blood cultures. 2. Acute kidney injury improved. 3. Clinical volume depletion. We will continue with IV fluids. 4. Uncontrolled diabetes mellitus with presenting A1c of 8.3. The patient has been started on insulin regimen. Glucose is better controlled. 5. Severe dementia noted. Patient is total care at home. We will get physical therapy to start working with him. 6. Elevated troponin concerning for non STEMI. The patient has a history of coronary artery disease status post CABG in the past. He is currently denying any chest pain so unsure if this is also a reflection of demand mismatch. We are getting an echocardiogram. A repeat EKG this morning does not show any acute changes. Troponin's are trending down. We will get Cardiology as well to evaluate him. 7. Sepsis secondary to gastroenteritis and pneumonia. PLAN: In general, I think Mr. Lopez's hydration status is getting better. 1. Acute kidney injury has resolved. He was a little bit more interacting with me today. We are pending an echocardiogram as well as a cardiology consult. I have discussed discharge plan with the who is also the forestry professor who has requested that if at all Mr. Lopez can be discharged to rehab to help with his physical advent. We will get Physical Therapy to evaluate him, and we will also get social work to evaluate him for possible rehab placement. 2. Of note Mr. Lopez has not had any more bloody diarrhea since the hospital course. cc: Sridhar Garrison MD
[2019-06-20] MEDS: ZOSYN 3.375 GM in NS 50 ML IV SCH ×4 (02:25→22:56)
[2019-06-20] MEDS: DUONEB (A & A) INH SCH ×6 (03:34→23:06)
[2019-06-20] MEDS: HUMALOG SUBQ SCH ×4 (06:27→22:58)
--- NOTE | 2019-06-20 08:55 | EKG Report ---
Test Performed on : 06/20/2019 07:15:55 AM Test Reason : CAD Blood Pressure : / mmHG Vent. Rate : 063 BPM Atrial Rate : 063 BPM P-R Int : 140 ms QRS Dur : 102 ms QT Int : 408 ms P-R-T Axes : 025 035 -02 degrees QTc Int : 417 ms Normal sinus rhythm. Nonspecific T wave abnormality Abnormal ECG When compared with ECG of 19-JUN-2019 06:40, (Unconfirmed) No significant change was found Confirmed by Andrzej MOTLEY, Edmond Schneider ([id number]) on 06/21/2019 10:26:16 PM
[2019-06-20] MEDS: LEXAPRO PO SCH (10:10)
[2019-06-20] MEDS: ASPIRIN EC PO SCH (10:10)
[2019-06-20] MEDS: PRAVACHOL PO SCH (10:10)
--- NOTE | 2019-06-20 14:17 | PROGRESS NOTE ---
DATE: 06/20/2019 SUBJECTIVE: This morning Mr. Lopez refers to be doing a lot better denies any new complaints. The daughter and the were both at the bedside at the time of the encounter. OBJECTIVE: Vitals: Blood pressure is 146/60, pulse of 61, respiration is 16, temperature 98.1 degrees, patient is saturating 100% on room air. General: Mr. Lopez 73-year-old gentleman he is in bed, no distress. Mucosa is pink, slightly dry. Anicteric. Acyanotic. Neck: Supple. Chest: Good air entry bilateral. No crepitations, no rhonchi. Cardiovascular: Regular rate and rhythm. No murmurs, no rubs, no gallops. There is an old sternotomy scar on the anterior chest wall. Abdomen: Soft, nontender. Bowel sounds present. Extremities: No pedal edema. NUCLEAR MEDICINE TECHNICIAN: Patient is awake, followed basic commands but for most part he is nonverbal. LABORATORY DATA: Glucose is 148. So far blood cultures have been 48 hours negative. Patient echocardiogram shows an ejection fraction of 55 to 60 percent. No wall motion abnormality. Rest of findings were unremarkable. ASSESSMENT: 1. Bilateral lower lobe infiltrates on imaging concerning for pneumonia. The patient is on antimicrobial coverage. So far blood cultures have been negative. We will repeat a chest x- ray tomorrow morning. 2. Acute kidney injury on admission improved. 3. Clinical volume depletion, patient is on intravenous fluids. 4. Uncontrolled diabetes mellitus with presenting A1c of 8.3. Patient is on insulin regimen, glucose better. 5. Elevated troponin due to non ST segment elevation myocardial infarction from demand mismatch. 6. Sepsis secondary to gastroenteritis and pneumonia. 7. Rectal bleed with diarrhea concerning for colitis. So far Mr. Lopez has not had any more rectal bleed. We are going to continue to monitor his hemoglobin and hematocrit. If this is dropping we will consult GI. If it is not then we will just continue to observe. Mr. Lopez was on hospice at home so I have explained to the family that if the hemoglobin and hematocrit seems to be stable there would not be any need to do any invasive interventions on him. cc: Sridhar Garrison MD
--- NOTE | 2019-06-20 15:04 | CARDIOLOGY PROGRESS NOTE ---
DATE: 06/20/2019 CHIEF COMPLAINT: Nausea and diarrhea. SUBJECTIVE: Mr. Lopez has felt better since yesterday. This morning has eaten his food without any nausea. No more diarrhea. The diarrhea was bloody according to the . He is not having any pain. He is in a very good mood. The patient is on hospice for dementia issues. He walks with a walker at home. OBJECTIVE: Vital Signs: Blood pressure is 141/83, temperature 98.6, pulse 81, and respirations 16. General: The patient is awake, alert, and in a good mood. Basically in no distress. HEENT: Unremarkable. Chest: Slightly diminished breath sounds diffusely without rales. Cardiovascular: Heart sounds are regular and rhythmic. I do not hear a gallop or murmur. He has a scar from a sternotomy. Abdomen: Nontender. Extremities: The extremities show good pulses. No edema. Neurological: Follows commands and moves all extremities. He is a little stiff. LABORATORY DATA: Sodium is 141, potassium 3.6, chloride 105, carbon dioxide 22, BUN 17, and creatinine 1. Troponin level started at 174 and it has gradually decreased to 131, 112, 102, 93, and the last one was 70 ng/mL. IMPRESSION: 1. Patient who presented to the hospital with acute diarrhea and vomiting. Question of urinary tract infection versus early pneumonia. 2. Coronary bypass surgery and coronary heart disease, mild elevation of high sensitivity troponin. This is probably nonspecific and probably precipitated by the metabolic stress. 3. Dementia. 4. Decreased functional capacity. The patient has been already under hospice care. 5. History of diabetes. RECOMMENDATIONS: At this time, the patient basically is behaving as if he had an acute infection and he is getting over it. He did have a fever at the time of initial presentation. We documented 100.9 degrees. At this time his AV graft is doing fine. I think from a cardiac viewpoint we are not going to do anything else. His EKG this morning done at 7:15 shows sinus rhythm with probably no significant ST-T abnormality. There is an old inferior scar noted. His echocardiogram, which I read yesterday, showed a normal left ventricular ejection fraction on the order of 55% to 60% without any obvious wall motion abnormality. I believe the patient's current prognosis is good, cardiac- seo he is stable, and no further cardiac testing is warranted. I will sign off today. Call us if further assistance is needed. cc: Lemuel Pritchard MD
[2019-06-20] MEDS: NS 1,000 ML IV SCH ×2 (16:23→23:03)
[2019-06-20] MEDS: LEVEMIR SUBQ SCH (22:57)
[2019-06-21] MEDS: DUONEB (A & A) INH SCH ×6 (03:27→23:42)
[2019-06-21] MEDS: ZOSYN 3.375 GM in NS 50 ML IV SCH ×4 (03:36→22:07)
[2019-06-21] MEDS: NS 1,000 ML IV SCH (03:41)
[2019-06-21] MEDS: HUMALOG SUBQ SCH ×4 (06:13→22:10)
[2019-06-21 08:38] LABS: BASO# 0.03 X1000 (0.0-0.2); BASO% 0.8 % (0.0-0.8); EOS# 0.24 X1000 (0.0-0.7); EOS% 6.3 % (0.0-10.0); HEMATOCRIT 29.3 % (42.0-52.0); HEMOGLOBIN 9.6 g/dL (14.0-18.0); LYMPH# 1.02 X1000 (1.2-3.4); LYMPH% 26.8 % (20.5-51.1); MCH 29.1 PG (27-31); MCHC 32.8 g/dL (33-37); MCV 88.8 FL (81-99); MONO% 7.9 % (1.7-9.3); NEUT# 2.21 X1000 (1.4-6.5); NEUT% 58.2 % (42.2-75.2); PLT 125 X1000 (130-400); RDW 13.9 % (11.5-14.5)
[2019-06-21 08:42] LABS: AGAP 9; ALBUMIN 2.9 g/dL (3.5-5.0); BUN 6 mg/dL (8-22); CALCIUM 8.2 mg/dL (8.8-10.2); CHLORIDE 106 mmol/L (98-107); COSMO 277; CREATININE 0.8 mg/dL (0.7-1.2); ESTIMATED GFR > 60; GLUCOSE 161 mg/dL (70-104); PHOSPHORUS 2.1 mg/dL (2.7-4.5); POTASSIUM 3.1 mmol/L (3.5-5.1); SODIUM 138 mmol/L (136-145); TCO2 23 mmol/L (25-35)
[2019-06-21] MEDS ORDERED: POTASSIUM PHOSPHATE 40 MEQ in NS 250 ML IV ONE (09:30)
[2019-06-21] MEDS: PRAVACHOL PO SCH (09:52)
[2019-06-21] MEDS: LEXAPRO PO SCH (09:52)
[2019-06-21] MEDS: ASPIRIN EC PO SCH (09:53)
--- NOTE | 2019-06-21 10:25 | Diag Imaging Result Doc PS360 ---
EXAM: CHEST-2 VIEWS 06/21/2019 HISTORY: hypoxia TECHNIQUE: AP and lateral chest COMMENT: There is what appears to be a small bowel loop underneath the right hemidiaphragm. The inspiration is suboptimal. The appearance of the chest has not changed significantly since 06/18/2019. There may be some interstitial pulmonary edema which is particularly evident posteriorly on the lateral view. IMPRESSION: Questionable interstitial pulmonary edema. Electronically signed by Moustapha Zhang 06/21/2019 10:23 AM
--- NOTE | 2019-06-21 17:25 | PROGRESS NOTE ---
DATE: 06/21/2019 SUBJECTIVE: This morning Mr. Lopez remains the same. He remains nonverbal, but he will nod his head to yes and no and he nodded to say he was doing well. The daughter was as at the bedside at the time of the encounter. She thinks the father is doing better. OBJECTIVE: Vital signs: Blood pressure is 98/33, pulse of 61, respirations 16, temperature is 97.8 degrees. Patient is saturating 95% on room air. General: Mr. Lopez is a 73-year-old elderly gentleman. He is in bed no distress. HEENT: Mucosa is pink and moist. Anicteric. Acyanotic. Neck: Supple. Chest: Good air entry bilaterally. There were minimal crackles in the posterior lung morales but no rhonchi, no wheezing. Cardiovascular: Regular rate and rhythm. There are no murmurs, no rubs, no gallops. There is an old sternotomy scar on the anterior chest wall. Gastrointestinal: Soft. Bowel sounds present. No hepatosplenomegaly and no tenderness. Extremities: No pedal edema. MILLER HEAD: Patient is sleepy but easily arousable. Follows basic commands. He remains nonverbal, but he is able to move all extremities. LABORATORY DATA: WBC is down to 3.8, hemoglobin is 9.6, platelet count of 125,000. Chemistry is also reviewed. Potassium is 3.1 and phosphorus is 2.1. ASSESSMENT: 1. Intractable nausea and vomiting, with multiple bouts of diarrhea prior to admission consistent with gastroenteritis. The patient has not had any more bowel movements since admission. 2. Acute kidney injury on admission secondary to clinical volume depletion, improved. 3. Diabetes mellitus with presenting A1c of 8.3, improved on insulin regimen. 4. Sepsis on presentation secondary to gastroenteritis and possible pneumonia. 5. Bilateral lower lobe infiltrates on initial imaging, concerning for pneumonia. Patient is on antimicrobial coverage. 6. Abnormal urinalysis concerning for urinary tract infection. The patient is on antimicrobial coverage. Unfortunately, the urine culture was not ordered initially. 7. NH bleed. We think this was all related to the gastroenterocolitis. The patient has not had any more rectal bleeds since admission. He was on hospice at home, so the family does not want to pursue any GI workup. 8. Generalized weakness and deconditioning. Physical therapy has been consulted. 9. Electrolyte abnormality including hypokalemia and hypophosphatemia. We will continue replacement. 10. Troponin elevation concerning for non-ST elevation myocardial infarction (N- STEMI). Unsure if it is due to demand mismatch versus a true underlying coronary artery disease Mr. Lopez has been evaluated by Cardiology. At this point, the recommendation was just to treat the ongoing medical comorbidities and observe the cardiac enzymes. Cardiology has actually signed off. PLAN: So, in general, I think Mr. Lopez is doing fair. He got admitted on 06/18/2019 mainly because of generalized weakness, vomiting, diarrhea and fever and also some blood in his stool. Over the course of the hospital stay, he has been fairly stable. He has not had any more diarrhea. He has been started on antibiotics and he has remained afebrile. So far, his blood cultures have come back negative for 48 hours. We plan to continue the antibiotics for about 7 days to treat potential pneumonia and urinary tract infection and also possible colitis. I think the current antibiotics can be switched to p.o. Augmentin or Levaquin whenever the patient is ready for discharge. Mr. Lopez was home on hospice. The family thinks that he is now needing too much of care and that the is not able to provide because he has generalized weakness. We plan to get Mr. Lopez to a rehab to get him a little stronger as he recovers from his acute medical problems (infections) and get him to his baseline and hopefully get him home after the rehab. Social Work has been consulted for rehab placement. cc: Sridhar Garrison MD MTDD
[2019-06-21] MEDS: LEVEMIR SUBQ SCH (22:07)
[2019-06-22] MEDS: ZOSYN 3.375 GM in NS 50 ML IV SCH ×4 (02:17→21:07)
[2019-06-22] MEDS: DUONEB (A & A) INH SCH ×6 (03:14→23:56)
[2019-06-22] MEDS: HUMALOG SUBQ SCH ×4 (06:03→21:06)
[2019-06-22 08:21] LABS: HEMATOCRIT 32.5 % (42.0-52.0); HEMOGLOBIN 10.6 g/dL (14.0-18.0); MCH 29.2 PG (27-31); MCHC 32.6 g/dL (33-37); MCV 89.5 FL (81-99); MPV 12.3 FL (7.4-10.4); RBC 3.63 XMIL (4.7-6.1); RDW 13.9 % (11.5-14.5); WBC 4.45 X1000 (4.8-10.8)
[2019-06-22 08:55] LABS: AGAP 10; BUN 6 mg/dL (8-22); CALCIUM 9.1 mg/dL (8.8-10.2); CHLORIDE 108 mmol/L (98-107); COSMO 280; CREATININE 0.9 mg/dL (0.7-1.2); ESTIMATED GFR > 60; GLUCOSE 148 mg/dL (70-104); PHOSPHORUS 2.5 mg/dL (2.7-4.5); POTASSIUM 3.9 mmol/L (3.5-5.1); SODIUM 140 mmol/L (136-145); TCO2 22 mmol/L (25-35)
[2019-06-22] MEDS: PRAVACHOL PO SCH (09:56)
[2019-06-22] MEDS: LEXAPRO PO SCH (09:56)
[2019-06-22] MEDS: ASPIRIN EC PO SCH (09:56)
--- NOTE | 2019-06-22 17:27 | PROGRESS NOTE ---
DATE: 06/22/2019 SUBJECTIVE: This patient seems to be a little bit better today based on his previous notes. Today he was talking to me, but he was confused, he was able to recognize his at the bedside but not his daughter. I will add Seroquel that this patient apparently was about to be on a few days ago before coming to the hospital. He was on hospice and he gets agitated at the end of the afternoon/night. The plan is to send this patient to a rehab center and then once he gets his strength back probably hospice again. OBJECTIVE: Vital Signs: Temperature 97.8 degrees, pulse 66, respiratory rate 20, blood pressure 141/53 oxygen saturation 100% on room air. HEENT: Head normocephalic. No trauma. PERRLA. Neck: Supple. No JVD. No masses. Central trachea. Chest: Clear to auscultation. Some mild crackles at the bases. No wheezing. Cardiovascular: Regular rate and rhythm. There is a sternotomy scar with no lesions. Abdomen: Soft, nontender, nondistended. No hepatosplenomegaly. Extremities: No edema, no clubbing, no cyanosis. Neurological: The patient is awake. He is oriented to person. He is able to recognize his at the bedside, but not the daughter. LABORATORY: WBC 4.4, hemoglobin 10.6, hematocrit 32.5, platelets 140,000. Sodium 140, potassium 3.9, chloride 108, bicarbonate 22, BUN 6, creatinine 0.9 glucose 148, calcium 9.1, phosphorus 2.5, albumin 3. ASSESSMENT AND PLAN: 1. Intractable nausea, vomiting, multiple bouts of diarrhea prior to admission, consistent with gastroenteritis. This seems to be better. He is tolerating p.o. No more diarrhea. 2. Acute kidney injury secondary to dehydration, improved. 3. Diabetes mellitus with hemoglobin A1c of 8.3, continue with insulin. 4. Sepsis on presentation secondary to gastroenteritis and possible pneumonia, continue with antibiotics. 5. Bilateral lower lobe infiltrates on initial imaging, concerning for pneumonia. Patient is on antibiotics. 6. Abnormal urinalysis concerning for urinary tract infection. Continue with same management. 7. Gastrointestinal bleed, probably related to gastroenterocolitis. No more rectal bleeds since admission. This patient actually is coming from home with hospice and the family as per previous notes does not want to go ahead and do any kind of workup gastroenterology workup. 8. Generalized weakness and deconditioning. Continue physical therapy. 9. Electrolyte abnormality seems to be better. 10. Episodes of agitation, mostly at the end of the afternoon or night, I will add Seroquel to his medications to see how he does. PLAN: The plan is to send this patient to a rehab center. He used to be at home with hospice but the cannot take care of him unless he is stronger. We will continue physical therapy at this moment. He but he should go to a rehab center before going home. cc: Carlos Fofana MD
[2019-06-22] MEDS: LEVEMIR SUBQ SCH (21:06)
[2019-06-22] MEDS: SEROQUEL PO SCH (21:07)
[2019-06-23] MEDS: ZOSYN 3.375 GM in NS 50 ML IV SCH ×4 (03:23→20:13)
[2019-06-23] MEDS: DUONEB (A & A) INH SCH ×6 (04:15→23:28)
[2019-06-23] MEDS: HUMALOG SUBQ SCH ×4 (06:13→20:45)
[2019-06-23 08:53] LABS: AGAP 11; BUN 8 mg/dL (8-22); CALCIUM 8.9 mg/dL (8.8-10.2); CHLORIDE 106 mmol/L (98-107); COSMO 277; CREATININE 0.9 mg/dL (0.7-1.2); ESTIMATED GFR > 60; GLUCOSE 194 mg/dL (70-104); SODIUM 137 mmol/L (136-145); TCO2 20 mmol/L (25-35)
[2019-06-23] MEDS: ASPIRIN EC PO SCH (09:08)
[2019-06-23] MEDS: LEXAPRO PO SCH (09:08)
[2019-06-23] MEDS: PRAVACHOL PO SCH (09:08)
--- NOTE | 2019-06-23 12:37 | PROGRESS NOTE ---
DATE: 06/23/2019 SUBJECTIVE: The patient seems to be resting comfortably in bed. His daughter is at the bedside. This patient has an advanced dementia that has been going on for awhile now. The plan is to send this patient to a rehab center and probably after that, he can either stay in a long-term facility or go back home with probably hospice. He has been on hospice before. It looks like the Seroquel that I started yesterday is working fine for this patient and he rested the whole night. OBJECTIVE: Vital Signs: Temperature 97.8 degrees, pulse 71, respiratory rate 16, blood pressure 131/56, oxygen saturation 97% on room air. HEENT: Head normocephalic. No trauma. PERRLA. Neck: Supple. No JVD. No masses. Central trachea. Chest: Clear to auscultation. Mild crackles at the bases. No wheezing. Cardiovascular: Regular rate and rhythm. There is a sternotomy scar with no lesions. Abdomen: Soft, nontender, nondistended. No hepatosplenomegaly. Extremities: No edema, no clubbing, no cyanosis. Neurological Examination: The patient is awake. He is oriented to person. He has been confused on and off about the name of the family members. He knows he is in a hospital. He has dementia. Laboratory: Sodium 137, potassium 4, chloride 106, bicarbonate 20, BUN 8, creatinine 0.9, glucose 194, calcium 8.9. ASSESSMENT AND PLAN: 1. Intractable nausea, vomiting, and multiple bouts of diarrhea prior to admission, resolved. He is tolerating oral intake really well. No more diarrhea. 2. Acute kidney injury secondary to dehydration, improved. 3. Type 2 diabetes with a hemoglobin A1c of 8.3. His glucose level is increasing because this patient is eating much better, so I will increase the dose of Levemir from 30 to 50. I will put this patient back on metformin. 4. Sepsis on presentation secondary to gastroenteritis and possible pneumonia. Continue with antibiotics. 5. Bilateral lower lobe infiltrates on initial imaging, concerning for pneumonia. Patient is on antibiotics. 6. Abnormal urinalysis, concerning for urinary tract infection. Continue with the same management. 7. Gastrointestinal bleed, probably related to gastroenteritis. No more rectal bleeds since admission. The patient actually is coming from home with hospice and the family, as per previous notes, does not want to go ahead and do any kind of gastroenterology workup. 8. Generalized weakness and physical deconditioning. Continue physical therapy. 9. Electrolyte abnormality, better. 10. Episode of agitation, mostly at the end of the afternoon and/or night. I added Seroquel to his medication and he seems to be doing better. 11. The plan is to send this patient to a rehab center and after that, he can go either to home with hospice or long-term treatment. cc: Carlos Fofana MD
[2019-06-23] MEDS: SEROQUEL PO SCH (20:13)
[2019-06-23] MEDS: LEVEMIR SUBQ SCH (20:44)
[2019-06-24] MEDS: DUONEB (A & A) INH SCH ×6 (03:34→23:21)
[2019-06-24] MEDS: ZOSYN 3.375 GM in NS 50 ML IV SCH ×4 (03:44→21:25)
[2019-06-24] MEDS: HUMALOG SUBQ SCH ×4 (06:05→21:26)
[2019-06-24 08:35] LABS: AGAP 10; BUN 8 mg/dL (8-22); CALCIUM 9.1 mg/dL (8.8-10.2); CHLORIDE 108 mmol/L (98-107); COSMO 280; CREATININE 0.7 mg/dL (0.7-1.2); ESTIMATED GFR > 60; GLUCOSE 165 mg/dL (70-104); POTASSIUM 3.6 mmol/L (3.5-5.1); SODIUM 139 mmol/L (136-145); TCO2 21 mmol/L (25-35)
[2019-06-24] MEDS: ASPIRIN EC PO SCH (09:28)
[2019-06-24] MEDS: LEXAPRO PO SCH (09:28)
[2019-06-24] MEDS: PRAVACHOL PO SCH (09:29)
[2019-06-24] MEDS: GLUCOPHAGE XR PO SCH ×3 (09:30→17:01)
--- NOTE | 2019-06-24 14:54 | PROGRESS NOTE ---
DATE: 06/24/2019 SUBJECTIVE: The patient is resting comfortably in bed. His is at the bedside, but he is totally confused today and he is not answering most of my questions. When I ask for his name he states that he does not have a name. OBJECTIVE: Vital Signs: Temperature 97.4 degrees, pulse 73, respiratory rate 14, blood pressure 124/57, oxygen saturation 100% on room air. HEENT: Head normocephalic. No trauma. PERRLA. Neck: Supple. No JVD. No masses. Central trachea. Chest: Clear to auscultation. Some crepitus at the bases. Cardiovascular: Regular rate and rhythm. There is a sternotomy scar with no lesions. Abdomen: Soft, nontender, nondistended. No hepatosplenomegaly. Extremities: No clubbing, no cyanosis. Neurological: The patient is awake. He is oriented to person. He has been confused on and off but today yesterday and the day before he was answering some of my questions, but not today. LABORATORY: Sodium 139, potassium 3.6, chloride 108, bicarbonate 21, BUN 8, creatinine 0.7, glucose 165, calcium 9.1. ASSESSMENT AND PLAN: 1. Intractable nausea, vomiting, and multiple bouts of diarrhea prior to admission, resolved. 2. Acute kidney injury secondary to dehydration, improved. 3. Type 2 diabetes with a hemoglobin A1c of 8.3, glucose level seems to be controlled. Continue with the same management. 4. Sepsis on presentation secondary to possible pneumonia and gastroenteritis. Continue with antibiotics. 5. Bilateral lower lobe infiltrate on initial imaging, concerning for pneumonia. Patient is on antibiotics. 6. Abnormal urinalysis concerning for urinary tract infection. Continue with same management. It looks like it is not symptomatic. 7. Gastrointestinal bleed, probably related to gastroenteritis, no more rectal bleeds since admission, the patient actually is coming from home with hospice and as per the family, they do not want to go ahead and do any kind of gastroenterology workup. 8. Generalized weakness and physical deconditioning. Continue physical therapy. 9. Electrolyte abnormality, better. 10. Episode of agitation, mostly during the end of the afternoon and/or night, well controlled with Seroquel. Overall this patient seems to be stable. Continue with same management for now. The plan is to send this patient to a rehab center. cc: Carlos Fofana MD
[2019-06-24] MEDS: LEVEMIR SUBQ SCH (21:26)
[2019-06-24] MEDS: SEROQUEL PO SCH (21:27)
[2019-06-25] MEDS: DUONEB (A & A) INH SCH ×6 (03:47→23:21)
[2019-06-25] MEDS: ZOSYN 3.375 GM in NS 50 ML IV SCH ×4 (04:30→21:31)
[2019-06-25] MEDS: HUMALOG SUBQ SCH ×4 (06:13→21:32)
[2019-06-25] MEDS: GLUCOPHAGE XR PO SCH ×2 (09:07→17:33)
[2019-06-25] MEDS: PRAVACHOL PO SCH (09:08)
[2019-06-25] MEDS: LEXAPRO PO SCH (09:08)
[2019-06-25] MEDS: ASPIRIN EC PO SCH (09:08)
--- NOTE | 2019-06-25 13:46 | PROGRESS NOTE ---
DATE: 06/25/2019 SUBJECTIVE: The patient is resting comfortably in bed. He is answering some of my questions. He is oriented x2. His is at the bedside, and he is able to recognize her today. As per the , he had a loose bowel movement yesterday with some blood. Occult blood in the stool is positive. I discussed the case with the , and she wants to treat this patient for his gastrointestinal bleed, so I will consult Gastroenterology Department to evaluate this patient. Initially, he came in with diarrhea, which is much better, and also intractable nausea and vomiting that probably was related to gastroenteritis. Clostridium difficile is pending. OBJECTIVE: Vital Signs: Temperature 98 degrees, pulse 83, respiratory rate 14, blood pressure 135/83, oxygen saturation 96% on room air. HEENT: Head normocephalic, no trauma. PERRLA. Neck: Supple. No JVD. No masses. Central trachea. Chest: Clear to auscultation. No wheezing. No rales. Abdomen: Soft, nontender, nondistended. No hepatosplenomegaly. Extremities: No clubbing, no cyanosis. Neurological: The patient is awake, alert. He is oriented to person and place. He is not oriented to time. He is able to recognize family members at the bedside. He is undemented. LABORATORY DATA: Glucose 119. ASSESSMENT AND PLAN: 1. Intractable nausea, vomiting, and multiple bouts of diarrhea on admission, resolved. 2. Gastrointestinal bleed. Yesterday he had a loose bowel movement that showed some blood, and there is a positive occult blood in the stool from yesterday. I discussed the case with the family, and even though he has been a hospice patient, they have requested to be evaluated by the Gastroenterology Department, so I will place the consult. 3. Type 2 diabetes with a hemoglobin A1c of 8.3. Glucose level seems to be controlled. 4. Sepsis on presentation secondary to possible pneumonia and gastroenteritis. Continue with antibiotics. 5. Bilateral lower lobe infiltrates on initial imaging, concerning for pneumonia. Patient is on antibiotics. 6. Abnormal urinalysis concerning for urinary tract infection, negative culture. He is on antibiotics. 7. Gastrointestinal bleed, probably related to gastroenteritis, but he is still having some bleeding, so I discussed the case with the family, and they want to go ahead and do a gastroenterology workup. 8. Generalized weakness and physical deconditioning. Continue physical therapy. 9. Electrolyte abnormality, this is better. I will get a new set of laboratory in the morning. 10. Episode of agitation, mostly during the end of the afternoon and/or night. We will control with Seroquel. 11. After gastroenterology evaluation, we will try to go ahead and send this patient to a rehab center before going home. cc: Carlos Fofana MD
[2019-06-25] MEDS: SEROQUEL PO SCH (21:31)
[2019-06-25] MEDS: LEVEMIR SUBQ SCH (21:31)
[2019-06-26] MEDS: DUONEB (A & A) INH SCH ×4 (03:26→15:33)
[2019-06-26] MEDS: ZOSYN 3.375 GM in NS 50 ML IV SCH ×3 (03:30→16:06)
[2019-06-26] MEDS: HUMALOG SUBQ SCH ×3 (06:24→16:42)
[2019-06-26 08:04] LABS: BASO# 0.03 X1000 (0.0-0.2); BASO% 0.6 % (0.0-0.8); EOS# 0.27 X1000 (0.0-0.7); EOS% 5.2 % (0.0-10.0); HEMATOCRIT 35.3 % (42.0-52.0); HEMOGLOBIN 11.5 g/dL (14.0-18.0); IMM GRAN# 0.02 X1000 (0.0-0.04); IMM GRAN% 0.4 % (0.0-0.5); LYMPH% 21.2 % (20.5-51.1); MCH 29.3 PG (27-31); MCHC 32.6 g/dL (33-37); MCV 89.8 FL (81-99); MONO# 0.44 X1000 (0.11-0.59); MONO% 8.5 % (1.7-9.3); MPV 11.4 FL (7.4-10.4); NEUT# 3.33 X1000 (1.4-6.5); NEUT% 64.1 % (42.2-75.2); PLT 227 X1000 (130-400); RBC 3.93 XMIL (4.7-6.1); RDW 14.4 % (11.5-14.5); WBC 5.19 X1000 (4.8-10.8)
[2019-06-26 08:26] LABS: AGAP 11; BUN 12 mg/dL (8-22); CALCIUM 9.3 mg/dL (8.8-10.2); CHLORIDE 105 mmol/L (98-107); COSMO 284; CREATININE 0.8 mg/dL (0.7-1.2); ESTIMATED GFR > 60; GLUCOSE 192 mg/dL (70-104); MAGNESIUM 1.6 mg/dL (1.5-2.7); POTASSIUM 3.5 mmol/L (3.5-5.1); SODIUM 140 mmol/L (136-145); TCO2 24 mmol/L (25-35)
[2019-06-26] MEDS: LEXAPRO PO SCH (08:53)
[2019-06-26] MEDS: PRAVACHOL PO SCH (08:53)
[2019-06-26] MEDS: ASPIRIN EC PO SCH (08:53)
[2019-06-26] MEDS: GLUCOPHAGE XR PO SCH ×2 (08:53→16:42)
--- NOTE | 2019-06-26 13:29 | DISCHARGE SUMMARY ---
ADMISSION DATE: 06/18/2019 DISCHARGE DATE: 06/26/2019 DISCHARGE DIAGNOSES: 1. Intractable nausea and vomiting, and multiple bouts of diarrhea on admission, resolved. 2. Gastrointestinal bleed due to likely gastroenteritis, better. 3. Type 2 diabetes with a hemoglobin A1c of 8.3. 4. Sepsis on presentation secondary to pneumonia and gastroenteritis. Treatment has been completed. 5. Abnormal urinalysis concerning for urinary tract infection. 6. Generalized weakness and physical deconditioning. 7. Episode of agitation in a patient with dementia, on Seroquel now and working fine. PROCEDURES PERFORMED: 1. Chest x-ray dated 06/18/2018: Small infiltrates. 2. Head CT scan dated 06/18/2028 impression: Worsening ventricular dilation with periventricular white matter edema or gliosis, highly suggestive of normal-pressure hydrocephalus. 3. Abdomen x-ray dated 06/18/2019 impression: No acute abnormality. 4. Echocardiogram dated 06/19/2019: Ejection fraction 55 to 60 percent. 5. Chest x-ray dated 06/21/2019 impression: Questionable interstitial pulmonary edema. HOSPITAL COURSE: A 73-year-old male admitted on 06/18/2019 due to subjective fever at 101.4, weakness, nausea, vomiting and diarrhea that has been worse over the past several days. He used to be home with hospice due to his advanced dementia. Apparently he was around great grandson prior to admission, and the child was diagnosed with flu the Saturday prior to admission. As per the , he was feeling weak. He had a fall the previous week, but he did not hit his head or lose consciousness. When arrived, his temperature was 100.9 degrees, saturation 97% on room air. White blood cell count 13. His BUN 29, creatinine 1.8, glucose 229, and troponin T high sensitive was 174. Chest x-ray showed small infiltrate. CT of the head showed worsening ventricular dilation with periventricular white matter edema or gliosis, highly suggestive of normal-pressure hydrocephalus. Abdomen x-ray showed no acute abnormality. Unable to do a CT of the abdomen and pelvis with IV contrast due to elevated creatinine. The patient was unable to drink any fluids due to his severe nausea and vomiting at that time. His urinalysis showed negative for nitrates, but showed bacteria and large leukocyte. His influenza A and B was negative. His urine drug screen was negative. He was admitted and he was placed on antibiotics for possible pneumonia UTI. He was hydrated and actually his acute kidney injury resolved. His diarrhea also resolved. We noticed some blood in the stool. Gastroenterology Department evaluated this patient, but the hemoglobin has been stable and today is 11.5, increased from 10.6 a few days ago and there is no active bleeding. Like I said, Gastroenterology Department evaluated this patient, and they will see this patient in the future as needed. Case has been discussed with the , even though this patient has been on hospice today, he was able to move around with not too much help. Now he is really weak, so they have requested to send this patient to a rehab center which we will. The patient seems to be stable. Vital signs are stable, as well as the laboratory. I have started this patient back on his insulin, but instead of 70 units in the morning, I will go ahead with 50 since he is recovering from this diarrhea and now he is eating much better. I do feel that now he can go back to his home dose. Probably this patient can be discharged in the future home, and probably he can go ahead again and get hospice if the family decides to do that again. PHYSICAL EXAMINATION: Vital Signs: Temperature 97.5 degrees, pulse 85, respiratory rate 16, blood pressure 117/47, oxygen saturation 95% on room air. HEENT: Head normocephalic, no trauma. PERRLA. Neck: Supple. No JVD. No masses. Central trachea. Chest: Clear to auscultation. No wheezing. No rales. Abdomen: Soft, nontender, nondistended. No hepatosplenomegaly. Extremities: No clubbing, no cyanosis, no edema. Neurological examination: Patient is awake, alert. He is oriented to person. He is able to recognize family members at the bedside. He is following commands on and off. LABORATORY: WBC 5.1, hemoglobin 11.5, hematocrit 35.3, platelets 227. Sodium 140, potassium 3.5, chloride 105, bicarbonate 24. BUN 12, creatinine 0.8, glucose 192, calcium 9.3, magnesium 1.6. DISCHARGE MEDICATIONS: Acetaminophen 350 mg p.o. q. 4 hours as needed for the fever, DuoNeb 3 mL inhaler q. 4 hours as needed for shortness of breath, aspirin 81 mg p.o. daily, Lexapro 10 mg p.o. daily, fenofibrate 160 mg p.o. daily, insulin detemir 70 units subcutaneous q.p.m., Synthroid 0.05 mg p.o. daily, lisinopril 20 mg p.o. daily, Metformin 1000 mg p.o. b.i.d., omeprazole 20 mg p.o. b.i.d., Zofran 4 mg p.o. q. 6 hours as needed for nausea and vomiting, pravastatin 40 mg p.o. daily and Seroquel 25 mg p.o. at bedtime. TIME SPENT: Time discharging this patient 35 minutes. cc: Carlos Fofana MD
[2019-06-26 15:45] VITALS: BP 117/49
--- NOTE | 2019-06-26 17:17 | GASTROENTEROLOGY CONSULTATION ---
DATE: 06/26/2019 REASON FOR CONSULT: GI bleed. HISTORY OF PRESENT ILLNESS: Mr. Lopez is a 73-year-old, male, who has been here in the hospital since 06/18/2019. The patient came to the hospital with complaints of fever of 101, weakness, nausea, vomiting, and diarrhea. Patient is not alert or oriented, has difficulty speaking. All of the history was gathered from his who is at his bedside. The patient has been with hospice with comfort care. The patient's mentioned that they had their grandson who had the flu on Saturday and thinks that he must have got the flu from the baby. The reports that the patient had a fall last week, but has denied hitting his head or having any loss of consciousness. The patient has been having watery diarrhea and she noticed some blood in his stools. He also had nausea and vomiting, but denied noticing any blood in his emesis. He had some fever, chills, but no shortness of breath and no abdominal pain. She mentioned that the patient was prescribed Seroquel, but the pharmacy instead gave him Zoloft. The patient had 2 doses of it before they realized that it was the wrong medicine, and think that must be the cause of his diarrhea. The patient does have a history of dementia, stroke x2 with right-sided weakness. He takes aspirin 81 mg after his CABG in 1999. The patient had seen Dr. Garcia four years back and had a colonoscopy which was normal. Currently denied noticing any blood in his stools. PAST MEDICAL HISTORY: Dementia, CVA x2 with right-sided weakness, COPD, diabetes type 2, GERD, hyperlipidemia, hypothyroidism. PAST SURGICAL HISTORY: CABG and heart implant. ALLERGIES: Bactrim. SOCIAL HISTORY: , has 3 kids. He used to smoke in the past. Denies any alcohol or illicit drug use. FAMILY HISTORY: Positive for heart disease and diabetes. HOME MEDICATIONS: Pravastatin 40 mg daily, lisinopril 20 mg daily, fenofibrate 160 mg p.o. daily, metformin 1000 mcg p.o. twice a day, levothyroxine 0.05 mg p.o. daily, Levemir insulin 70 units subcu in p.m., aspirin 81 mg daily, Zofran 4 mg p.o. as needed, and Lexapro 10 mg p.o. daily. REVIEW OF SYSTEMS: As per HPI. Otherwise, 12-point review of systems is negative. PHYSICAL EXAMINATION: Vital Signs: Temperature 97.5 degrees, pulse 82, respirations 18, blood pressure 117/49, oxygen saturation 92% on room air. Patient's weight is 124 pounds. BMI is 21.4 kg/m2. General: He is alert, oriented x1, and in no acute distress. HEENT: Pale conjunctivae. No icterus. PERRLA. Neck: Supple. Lungs: Clear to auscultation. Cardiovascular: Regular rate and rhythm. Abdomen: Soft, nontender, nondistended. Active bowel sounds in all 4 quadrants. Extremities: No clubbing, no cyanosis, no edema. Pedal pulses 2+ present. Right- sided weakness in the upper and lower extremities. Neurologic: Alert and oriented x3. focal. Cranial nerves 2-12 grossly intact. LABORATORY DATA: WBCs 5.19, RBC 3.93, hemoglobin 11.5, hematocrit 35.3, platelet count is 227,000. Sodium 140, potassium 3.5, chloride 105, carbon dioxide 24, anion gap is 11, BUN is 12, creatinine is 0.8, glucose 192, calcium 9.3, phosphorus is 3.0, magnesium 1.6. IMPRESSION AND PLAN: 1. Rectal bleeding 2. Acute kidney injury. 3. Pneumonia. 4. Diabetes type 2. 5. Dementia. 6. Cerebrovascular accident. Anemia UTI PLAN: Mr. Lopez is a 73-year-old, male, with a history of CVA x2, and dementia. Gastroenterology has been consulted for his GI bleed. The patient's hemoglobin and hematocrit today are 11.5 and 35.3. He is hemodynamically stable. has denied noticing any further bleeding episodes. The patient is currently on Prilosec 20 mg twice a day. He is on Zosyn for his pneumonia. The patient has discharge orders to go to rehab today and will be followed by hospice. We will continue to monitor the patient and follow the plan of care per PCP. This plan was discussed with Dr. Lo. Thank you for your consult. Please call us with any further questions or concerns. Dictated by CHERELLE Riojas for Ernesto Lo MD Physician Attestation I have seen and examined the patient. I have discussed and reviewed the note by Laurel VILLARREAL and agree with findings and plan as documented. In brief, Mr. Lopez is a 73 h/o man with h/o HTN, HLD, CAD s/p CABG on ASA, CVAx2, IDDM2, and advanced dementia on home hospice who was admitted with pneumonia, KRISS, and N/V/D. GI was consulted for evaluation of scant rectal bleeding thought to related to gastroenteritis that has since resolved. Ddx includes colitis, diverticular, hemorrhoidal; cannot r/o malignancy. I had long discussion with patient's that it aggressive measures including endoscopic evaluation would not be advisable if we are not going to [facility] change attendant and she wants him to continue with hospice at home. She was agreeable with this plan. Also, I recommend that PCP or cardiology discontinue ASA if he continues to have anemia or rectal bleeding. Continue PPI. Will sign off. Patient is going to rehab. Follow-up with GI prn. ARACELI
[2019-06-26] MEDS ORDERED: PRILOSEC PO SCH (21:00)
== END 2019-06-26 18:12 | DRG 871 ==
LOC: SUPCPDRO → ED 09:06 → SUATTDRO 13:41 → EDIPHOLD 13:41 → 3N 21:12
PROVIDERS: ATTEND Internal Medicine